=== PATIENT | female | born 1980 ===

== ENCOUNTER 2019-05-24 20:15 | Inpatient (IN) | payer OTHER, SELFPAY ==
[2019-05-24] MEDS ORDERED: Metoprolol Tartrate 5 MG/5 ML VIAL IVP PRN (23:01)
[2019-05-24] MEDS ORDERED: CCU Electrolyte Replacement 1 EACH IVPB ONE (23:02)
[2019-05-24] MEDS ORDERED: Metoprolol Tartrate 5 MG/5 ML VIAL ONE (23:03)
[2019-05-24] MEDS ORDERED: Acetaminophen 325 MG TAB PO PRN (23:08)
[2019-05-24] MEDS ORDERED: Senokot S 8.6-50 MG TAB PO PRN (23:08)
[2019-05-24] MEDS ORDERED: Potassium Chloride 40 MEQ in Premix Bag 1 BAG IVPB PRN (23:11)
[2019-05-24] MEDS ORDERED: PHOS-NAK 1 PKT PACK PO PRN ×2 (23:11)
[2019-05-24] MEDS ORDERED: Magnesium Oxide 400 MG TAB PO PRN ×2 (23:11)
[2019-05-24] MEDS ORDERED: CCU ELECTROLYTE REPLACEMENT PROTOCOL FS PRN (23:11)
[2019-05-24] MEDS ORDERED: Potassium Phosphate 12 MMOL in Sodium Chloride 0.9% 250 ML 250 ML IV PRN (23:11)
[2019-05-24] MEDS ORDERED: Potassium Phosphate 15 MMOL in Sodium Chloride 0.9% 250 ML 250 ML IV PRN (23:11)
[2019-05-24] MEDS ORDERED: Magnesium 2 GM/50 ML 2 GM in Premix Bag 1 BAG IVPB PRN (23:11)
[2019-05-24] MEDS ORDERED: Potassium Chloride 20 MEQ TAB PO PRN (23:11)
[2019-05-24] MEDS ORDERED: Potassium Phosphate 9 MMOL in Sodium Chloride 0.9% 100 ML IVPB PRN (23:11)
[2019-05-24] MEDS ORDERED: Potassium Chloride 40 MEQ in Sodium Chloride 0.9% 250 ML 250 ML IVPB PRN (23:11)
[2019-05-24] MEDS: Morphine 2 MG/ML SYRINGE SLOW IVP PRN (23:21)
[2019-05-24] MEDS ORDERED: Morphine 4 MG/ML VIAL SLOW IVP PRN (23:26)
[2019-05-24] MEDS ORDERED: Ketorolac Tromethamine 30 MG/ML VIAL IVP SCH (23:30)
[2019-05-24] MEDS ORDERED: oxyCODONE 5 MG TAB PO PRN (23:34)
[2019-05-24] MEDS ORDERED: Ibuprofen 600 MG TAB PO PRN (23:35)
[2019-05-24 23:50] VITALS: BMI 25.9
[2019-05-24] MEDS ORDERED: Enoxaparin Sodium 80 MG/0.8 ML SYRINGE SC SCH (23:59)
[2019-05-25] MEDS ORDERED: Ketorolac Tromethamine 30 MG/ML VIAL ONE
[2019-05-25] MEDS: niCARdipine 25 MG in Sodium Chloride 0.9% 250 ML 240 ML IVPB PRN ×3 (00:05→12:15)
[2019-05-25] MEDS: HYDROcodone/Acetaminophen 5/325 mg Tablet PO PRN ×5 (00:07→19:45)
--- NOTE | 2019-05-25 04:01 | HP ---
CHIEF COMPLAINT: Left-sided neck pain. HISTORY OF PRESENT ILLNESS: The patient is a very pleasant 38-year-old female with no past medical history, who presented to the outside ER with complaints of left-sided neck pain. The patient stated that for the past 2 to 3 days, she has been having worsening left-sided headache and neck pain, which increased in intensity. The patient stated that she had so much pain that she took her left over hydrocodone from her previous prescription just to help relieve with the pain. The patient stated that her pain did not improve, so she came into the ER for further evaluation. The patient underwent a CTA of the neck, which indicated a left-sided carotid dissection and she was transferred here for further evaluation. The patient states that she denies any trauma; however, has been doing CrossFit and did lift a few heavy weights. She normally does CrossFit 2 times a week. PAST MEDICAL HISTORY: Denies any past medical history. PAST SURGICAL HISTORY: The patient has had a tonsillectomy. SOCIAL HISTORY: She denies any drug use or smoking history. She does occasionally drink alcohol. She is a full code. Has 2 kids. Has had normal vaginal deliveries. No prior C-sections and no complications during surgery. FAMILY HISTORY: History of some heart disease. REVIEW OF SYSTEMS: All negative except for the ones mentioned above in the HPI. ALLERGIES: NO KNOWN DRUG ALLERGIES. MEDICATIONS: She takes no medications. PHYSICAL EXAMINATION: VITAL SIGNS: Temperature of 98.8, her blood pressure initially was 170/110, heart rate 71, respiratory rate 24, O2 saturation 98% on room air. GENERAL: She is awake, alert, and oriented x3. Does not appear in any distress. She is a little emotional. HEENT: Normocephalic, atraumatic. No lymphadenopathy noted. Pupils are equal and reactive to light. She does have pain on the left basal skull upon palpation. CV: S1 and S2 present. No murmurs, rubs, or gallops. LUNGS: Clear to auscultation. No rhonchi or wheezes noted. ABDOMEN: Soft and nontender. Bowel sounds are present x2. EXTREMITIES: No edema. Pedal pulses are present x2. NEUROVASCULAR: No focal deficits noted. SKIN: No cuts, lesions, or bruises noted. LABORATORY DATA: Laboratory reviewed through her chart and nothing significant was noted. ASSESSMENT AND PLAN: The patient is a very pleasant 38-year-old female, who presents to the hospital with neck pain. 1. Carotid dissection. It could be a possibility that she was lifting heavy weights during CrossFit that could have contributed to her current diagnosis. I will start the patient on Lovenox. I have notified the CV surgeon and we will control her blood pressure. If her blood pressure is not controlled on IV medications, I will transition her to IV nicardipine for better blood pressure control. We will also start giving her some pain medications for her left-sided neck pain. 2. Deep venous thrombosis prophylaxis. The patient is already on Lovenox. Job ID: [id number]
[2019-05-25 04:34] LABS: #Eosinphils 0.1 thou/uL (0.0-0.7); #Lymphocytes 2.2 thou/uL (1.20-3.40); #Monocytes 0.4 thou/uL (0.11-0.59); #Neutrophils 3.9 thou/uL (1.40-6.50); %Basophils 0.3 % (0.0-1.0); %Eosinophils 1.1 % (0.0-10.0); %Lymphocytes 33.8 % (21.0-51.0); %Monocytes 5.6 % (0.0-10.0); %Neutrophils 59.2 % (42.0-75.0); Hemoglobin 14.5 g/dL (12.0-16.0); Mean Corpuscular HGB CONC 34.1 g/dL (32.0-36.0); Mean Corpuscular Hemoglobin 31.5 pg (27.0-31.0); Mean Corpuscular Volume 92.4 fL (78.0-98.0); Mean Platelet Volume 7.4 fL (7.4-10.4); Platelet Count 220 thou/uL (130-400); RBC Distribution Width 11.6 % (11.5-14.5); White Blood Cell (WBC) Count 6.6 thou/uL (4.8-10.8)
[2019-05-25 04:53] LABS: Anion Gap 12 mmol/L (10-20); BUN (Urea Nitrogen) 9 mg/dL (7.0-18.7); Calc. Creatinine Clearance 120 mL/min (70-130); Calcium 8.5 mg/dL (7.8-10.44); Carbon Dioxide 23 mmol/L (22-29); Chloride 105 mmol/L (98-107); Estimated GFR-MDRD 78; Glucose 87 mg/dL (70-105); Potassium 3.7 mmol/L (3.5-5.1); Sodium 136 mmol/L (136-145)
[2019-05-25] MEDS: Famotidine 20 MG TAB PO SCH ×2 (08:38→20:27)
[2019-05-25] MEDS: Enoxaparin Sodium 80 MG/0.8 ML SYRINGE SC SCH ×2 (08:38→20:28)
[2019-05-25] MEDS ORDERED: ISOVUE-370 76%-LOCM 1 ML ONE (10:28)
[2019-05-25] MEDS: Morphine 2 MG/ML SYRINGE SLOW IVP PRN (12:15)
--- NOTE | 2019-05-25 14:48 | PDOC.HOSPP ---
- Subjective Encounter Date: 05/25/19 Encounter Time: 14:46 Subjective: 38 y/o female admitted with severe left sided headache and neck pain. found to have elevated BP and left carotid artery dissection. patient is on oral contraceptives. No prior history of HTN, connective tissue disease or kidney disease. - Objective Vital Signs & Weight: Vital Signs (12 hours) Temp 05/25/19 11:29 98.7 F 05/25/19 08:00 98.7 F 05/25/19 04:00 98.6 F Weight Weight 181 lb 14.102 oz Most Recent Monitor Data Heart Rate from ECG 73 NIBP 124/78 NIBP BP-Mean 93 Respiration from ECG 16 SpO2 100 I&O: 05/24/19 05/25/19 05/26/19 06:59 06:59 06:59 Intake Total 470 480 Output Total 1100 500 Balance -630 -20 Result Diagrams: 05/25/19 04:13 05/25/19 04:13 Hospitalist ROS - Medication Medications: Active Medications Generic Name Dose Route Start Last Admin Trade Name Freq PRN Reason Stop Dose Admin Hydrocodone Bitart/Acetaminophen 1 tab 05/24/19 23:08 05/25/19 14:00 [place] 5/325 PO 1 tab Q4H PRN Administration Moderate Pain (4-6) Enoxaparin Sodium 80 mg 05/25/19 09:00 05/25/19 08:38 Lovenox SC 80 mg 0900,2100 MIGUEL Administration Famotidine 20 mg 05/25/19 09:00 05/25/19 08:38 Pepcid PO 20 mg BID MIGUEL Administration Nicardipine HCl 25 mg/ Sodium 250 mls @ 0 mls/hr 05/24/19 23:02 05/25/19 12: 15 Chloride IVPB 250 mls INF PRN Administration Blood Pressure Protocol Titrate Ketorolac Tromethamine 15 mg 05/24/19 23:30 05/25/19 00:05 Toradol IVP 05/29/19 23:31 15 mg NOW MIGUEL Administration Morphine Sulfate 2 mg 05/24/19 23:05 05/25/19 12:15 Morphine SLOW IVP 2 mg Q4H PRN Administration Pain - Exam General Appearance: awake alert Eye: anicteric sclera ENT: normocephalic atraumatic Neck: symmetric, no JVD Heart: RRR, murmur present Respiratory: no wheezes, no rales, no ronchi, normal chest expansion Gastrointestinal: soft, non-tender, non-distended, normal bowel sounds Extremities: no cyanosis, no edema Neurological: cranial nerve grossly intact, no focal deficits Psychiatric: normal affect, A&O x 3 Hosp A/P (1) Carotid artery dissection Code(s): I77.71 - DISSECTION OF CAROTID ARTERY Status: Acute (2) HTN (hypertension) Code(s): I10 - ESSENTIAL (PRIMARY) HYPERTENSION Status: Acute (3) Neck pain Code(s): M54.2 - CERVICALGIA Status: Acute (4) Headache Code(s): R51 - HEADACHE Status: Acute - Plan Get adequate BP with cardene infusion continue anticoagulation with lovenox. Analgesic as needed to continue Start lipitor Get lipid panel. get echo and renal US. Hold oral contraceptives Awaiting vascular surgery evaluation.
--- NOTE | 2019-05-25 16:34 | ULT ---
RENAL ULTRASOUND: HISTORY: Assess for polycystic kidney disease. FINDINGS: The right kidney measures 10.4 cm in length. The left kidney measures 11.6 cm in length. There is berumen ggestion of a duplicated collecting system on the left by ultrasound. No evidence of hydronephrosis. No evidence of renal cyst. There is no evidence of polycystic kidney d isease. No mass lesion. The urinary bladder is unremarkable. Bilateral ureteral jets are demonstrated. IMPRESSION: Question double collecting system on the left. Renal ultrasound otherwise unremarkable. No evidence o f polycystic kidney disease. POS: [facility]
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
[2019-05-25] MEDS: Atorvastatin Calcium 40 MG TAB PO SCH (20:27)
[2019-05-25] MEDS ORDERED: FLU VACC QS2019-20(6MOS UP)/PF 60 MCG/0.5 ML SYRINGE IM ONE (21:00)
--- NOTE | 2019-05-26 00:02 | CON ---
DATE OF CONSULTATION: 05/25/2019 REASON FOR CONSULTATION: Evaluate patient with left carotid dissection. HISTORY OF PRESENT ILLNESS: Ms. Delvalle is a 38-year-old woman, who presented to an [facility] emergency department with history of a week of neck pain and headache. She had become acutely worse and she decided to get evaluated. She had a CT angio of her neck and brain performed at the [facility] emergency department. The report from the [facility] emergency department was relayed that she had a left carotid dissection at skull base. The patient has no previous history of hypertension. She has had no trauma. She does do CrossFit, but did not notice any change in her neck pain while doing CrossFit or acutely initiate pain while doing CrossFit. When she was seen at the [facility] emergency department, she had an extremely elevated blood pressure. On arrival here, her blood pressure was 170/110. Currently, her blood pressure is 129/95. She has been on a Cardene drip today to control her blood pressure. I have reviewed the CT angiogram from the [facility] Emergency Department with Dr. Mal Cerda. There is no obvious dissection of the carotid artery. She has on two separate cuts and abnormality which may be related to shadowing, but we cannot tell with 100% certainty that this is or is not a localized short-segment dissection. PAST MEDICAL HISTORY: None. PAST SURGICAL HISTORY: Tonsillectomy. CURRENT MEDICATIONS: At home, none. ALLERGIES: NONE. SOCIAL HISTORY: She does not smoke or vape. She occasionally uses alcohol. She has two children and is . PHYSICAL EXAMINATION: HEENT: Sclerae nonicteric. Pupils are equal and round bilaterally. NECK: Tender on the left. She has palpable carotid pulses. She has no carotid bruits. CHEST: Clear bilaterally. HEART: Rhythm is regular. ABDOMEN: Soft, nontender. ASSESSMENT AND PLAN: Question of left carotid dissection with hypertensive emergency yesterday. Her blood pressure is currently in normal range off all the drips. We would like to keep her blood pressure less than 130 systolic and in the 80s diastolically. We are going to repeat her CT angio of the neck tomorrow and hopefully with a higher quality scan or be able to get a better evaluation. Regardless of dissection or not, she needs to have good blood pressure control. The question is if she does have a carotid dissection, she would require six months of anticoagulation. If there is no dissection, then blood pressure control will be her in-line treatment. Job ID: [id number]
[2019-05-26 04:14] LABS: Anion Gap 12 mmol/L (10-20); BUN (Urea Nitrogen) 14 mg/dL (7.0-18.7); Calc. Creatinine Clearance 103 mL/min (70-130); Calcium 8.4 mg/dL (7.8-10.44); Carbon Dioxide 22 mmol/L (22-29); Cardiac Risk 4.4 (Less than 4.5); Chloride 107 mmol/L (98-107); Cholesterol 159 mg/dl (< 200 Desired); Estimated GFR-MDRD 65; Glucose 86 mg/dL (70-105); HDL Cholesterol 36 mg/dL (>60 Neg Risk); LDL Cholesterol, Calculated 75 mg/dL; Potassium 4.1 mmol/L (3.5-5.1); Sodium 137 mmol/L (136-145); Triglycerides 238 mg/dL (Less than 150)
[2019-05-26] MEDS: HYDROcodone/Acetaminophen 5/325 mg Tablet PO PRN ×5 (04:43→21:12)
--- NOTE | 2019-05-26 08:07 | CT ---
PRELIMINARY REPORT/[facility]/EMERGENCY AFTER HOURS PROCEDURE: Addendum created by Storm Hurley MD on 05/26/2019 5:07 AM Central Time ([place] & [place]) THIS REPORT CONT AINS FINDINGS THAT MAY BE CRITICAL TO PATIENT CARE. The findings were verbally communicated via telep kayla conference with Nurse Becki shell at 5:06 AM CDT on 05/26/2019. The findings were acknowledged and understood. Initial Report created on 05/26/2019 5:04 AM Central Time ([place] & [place]) PROCEDURE INFORMATION: Exam: CT Angiography Neck With Contrast Exam date and time: 05/26/2019 4:31 AM Clinical history: 38 years old, female; Pain; Headache; Patient HX: Eval for possible left carotid ar everett dissection at skull base TECHNIQUE: Imaging protocol: Computed tomography angiography of the neck with intravenous contrast. 3D rendering: MIP reconstructed images were created and reviewed. COMPARISON: No relevant prior studies available. FINDINGS: VASCULATURE: Right common carotid artery: Unremarkable. No stenosis. No dissection or occlusion. Right internal carotid artery: Unremarkable extracranial segment. No stenosis. No dissection or occlu peter. Right external carotid artery: Unremarkable. No occlusion or stenosis of the origin. Right vertebral artery: Unremarkable. No stenosis. No dissection or occlusion. Left common carotid artery: Unremarkable. No stenosis. No dissection or occlusion. Left internal carotid artery: There is a dissection flap noted involving the distal left internal car otid artery at the skull base with posterior pseudoaneurysm measuring approximately 6 x 4 x 8 mm. Left external carotid artery: Unremarkable. No occlusion or stenosis of the origin. Left vertebral artery: Unremarkable. No stenosis. No dissection or occlusion. NECK: Bones/joints: No acute fracture. Soft tissues: Normal. No significant soft tissue swelling. 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 COMMENT: Reference per NASCET criteria for degree of stenosis: Mild: less than 50% stenosis. Moderate: 50-69% stenosis. Severe: 70-94% stenosis. Near occlusion: 95-99% stenosis. Thank you for allowing us to participate in the care of your patient. Dictated and Authenticated by: Storm Hurley MD 05/26/2019 5:04 AM Central Time ([place] & [place]) FINAL REPORT EMERGENT AFTER HOURS CTA OF THE CHEST: FINDINGS/IMPRESSION: I agree with the findings and impression given in the preliminary report per [facility] physician. There is an area of questionable dissection in an enlarged portion of the left internal carotid artery near the skull base. Alternatively, this could represent artifact as the area of streak continues into t he vein and is not confined solely to the artery in this location. Without a history of trauma, foca l dissection in the internal carotid artery would be unlikely. An MRA of the neck should be performed for confirmation. This exam was reviewed with Dr. Murillo who agrees with the findings and impression in the addendum. POS: [facility]
[2019-05-26] MEDS: Aspirin 81 mg Enteric Coated Tablet PO SCH (08:46)
[2019-05-26] MEDS: Famotidine 20 MG TAB PO SCH ×2 (08:48→21:09)
[2019-05-26] MEDS: Clopidogrel Bisulfate 75 MG TAB PO SCH (08:48)
[2019-05-26] MEDS ORDERED: Amlodipine 5 MG TAB PO SCH (11:15)
[2019-05-26] MEDS: Ibuprofen 800 MG TAB PO SCH ×2 (13:06→21:09)
[2019-05-26] MEDS: niCARdipine 25 MG in Sodium Chloride 0.9% 250 ML 240 ML IVPB PRN ×3 (13:50→21:10)
[2019-05-26] MEDS: Morphine 4 MG/ML VIAL SLOW IVP PRN ×2 (13:55→16:16)
--- NOTE | 2019-05-26 15:08 | PDOC.HOSPP ---
- Subjective Encounter Date: 05/26/19 Encounter Time: 12:06 Subjective: 38 y/o female admitted with severe left sided headache and neck pain. Found to have elevated BP and left carotid artery dissection. Patient is on oral contraceptives. No prior history of HTN, connective tissue disease or kidney disease. Feeling better. Denied dizziness, nausea, vomiting and focal weakness - Objective Vital Signs & Weight: Vital Signs (12 hours) Temp Pulse BP Pulse Ox 05/26/19 12:00 98.4 F 05/26/19 11:49 66 137/89 05/26/19 07:21 99 05/26/19 07:00 98.7 F Weight Weight 181 lb 14.102 oz Most Recent Monitor Data Heart Rate from ECG 78 NIBP 124/79 NIBP BP-Mean 94 Respiration from ECG 27 SpO2 95 I&O: 05/25/19 05/26/19 05/27/19 06:59 06:59 06:59 Intake Total 470 2226 2210 Output Total 1100 1350 300 Balance -518 642 0025 Result Diagrams: 05/25/19 04:13 05/26/19 03:34 Hospitalist ROS - Medication Medications: Active Medications Generic Name Dose Route Start Last Admin Trade Name Freq PRN Reason Stop Dose Admin Hydrocodone Bitart/Acetaminophen 1 tab 05/24/19 23:08 05/26/19 13:05 [place] 5/325 PO 1 tab Q4H PRN Administration Moderate Pain (4-6) Aspirin 81 mg 05/26/19 09:00 05/26/19 08:46 Ecotrin PO 81 mg DAILY MIGUEL Administration Atorvastatin Calcium 40 mg 05/25/19 21:00 05/25/19 20:27 Lipitor PO 40 mg HS MIGUEL Administration Clopidogrel Bisulfate 75 mg 05/26/19 09:00 05/26/19 08:48 Plavix PO 75 mg DAILY MIGUEL Administration Famotidine 20 mg 05/25/19 09:00 05/26/19 08:48 Pepcid PO 20 mg BID MIGUEL Administration Nicardipine HCl 25 mg/ Sodium 250 mls @ 0 mls/hr 05/24/19 23:02 05/26/19 13: 50 Chloride IVPB 250 mls INF PRN Administration Blood Pressure Protocol Titrate Ibuprofen 400 mg 05/26/19 14:00 05/26/19 13:06 Motrin PO 400 mg Q8HR MIGUEL Administration Metoprolol Tartrate 5 mg 10/20/19 23:01 05/26/19 09:48 Lopressor IVP 05/27/19 23:02 5 mg ONE PRN Administration Blood Pressure Morphine Sulfate 2 mg 05/24/19 23:05 05/25/19 12:15 Morphine SLOW IVP 2 mg Q4H PRN Administration Pain Morphine Sulfate 4 mg 05/26/19 13:46 05/26/19 13:55 Morphine SLOW IVP 4 mg Q1H PRN Administration Pain - Exam General Appearance: awake alert Eye: anicteric sclera ENT: normocephalic atraumatic Neck: supple, symmetric Heart: RRR, murmur present Respiratory: no wheezes, no rales, no ronchi, normal chest expansion Gastrointestinal: soft, non-tender, non-distended, normal bowel sounds Extremities: no cyanosis, no edema Neurological: cranial nerve grossly intact, no focal deficits Psychiatric: normal affect, A&O x 3 Hosp A/P (1) Carotid artery dissection Code(s): I77.71 - DISSECTION OF CAROTID ARTERY Status: Acute (2) HTN (hypertension) Code(s): I10 - ESSENTIAL (PRIMARY) HYPERTENSION Status: Acute (3) Neck pain Code(s): M54.2 - CERVICALGIA Status: Acute (4) Headache Code(s): R51 - HEADACHE Status: Acute (5) Malignant hypertension Code(s): I10 - ESSENTIAL (PRIMARY) HYPERTENSION Status: Acute (6) Dyslipidemia Code(s): E78.5 - HYPERLIPIDEMIA, UNSPECIFIED Status: Acute - Plan Start amlodipine and wean off cardene infusion continue anticoagulation with lovenox. Analgesic as needed to continue Continue lipitor Dcoral contraceptives Await Echo report
--- NOTE | 2019-05-26 16:59 | PRG ---
DATE OF SERVICE: 05/26/2019 Ms. Delvalle continues to have neck pain that waxes and wanes. The [facility] Radiology crew felt that she does have a carotid dissection. The over-read by the local radiologist felt that she did not. The vascular surgeon feels that she does have a dissection. I would tend to lean towards the diagnosis by dissection given that she presenting with neck pain and has no other explanation for this. This is a number one presenting complaint with a carotid dissection, especially a spontaneous one. We will continue to follow the other physicians. They recommended the initiation of the antiplatelet therapy consistent with a recent review of the literature. Her anticoagulation has been discontinued. Job ID: [id number]
[2019-05-26] MEDS: Atorvastatin Calcium 40 MG TAB PO SCH (21:09)
[2019-05-27 05:13] LABS: Anion Gap 11 mmol/L (10-20); BUN (Urea Nitrogen) 15 mg/dL (7.0-18.7); Calc. Creatinine Clearance 108 mL/min (70-130); Calcium 8.4 mg/dL (7.8-10.44); Carbon Dioxide 24 mmol/L (22-29); Chloride 106 mmol/L (98-107); Estimated GFR-MDRD 68; Glucose 79 mg/dL (70-105); Sodium 137 mmol/L (136-145)
[2019-05-27] MEDS: HYDROcodone/Acetaminophen 5/325 mg Tablet PO PRN ×3 (05:23→18:41)
[2019-05-27] MEDS: Ibuprofen 800 MG TAB PO SCH ×3 (05:24→21:40)
[2019-05-27] MEDS ORDERED: Amlodipine 10 MG TAB PO SCH (09:00)
[2019-05-27] MEDS ORDERED: Amlodipine 5 MG TAB PO SCH (09:00)
[2019-05-27] MEDS: Famotidine 20 MG TAB PO SCH ×2 (09:38→21:39)
[2019-05-27] MEDS: Clopidogrel Bisulfate 75 MG TAB PO SCH (09:38)
[2019-05-27] MEDS: Aspirin 81 mg Enteric Coated Tablet PO SCH (09:38)
--- NOTE | 2019-05-27 15:25 | PRG ---
DATE OF SERVICE: 05/27/2019 SUBJECTIVE: Stephanie Delvalle has stable vital signs. OBJECTIVE: VITAL SIGNS: Blood pressure has been in the 1-teens to 120s today. She is off Cardene. NECK: She denies having any neck pain. LUNGS: Clear. HEART: Regular rhythm. ABDOMEN: Soft. NEUROLOGIC: She has no focal neurological issues. LABORATORY DATA: Echocardiogram is normal except for mild LVH. IMPRESSION: Carotid dissection. I will send an alpha-1 antitrypsin level and homocystine level to see if we find something that might explain this, although there is a case report related frequency events. We will continue to follow the other physicians. Job ID: [id number]
[2019-05-27] MEDS ORDERED: niCARdipine 25 MG in Sodium Chloride 0.9% 250 ML 240 ML IVPB PRN (16:18)
--- NOTE | 2019-05-27 17:59 | PDOC.HOSPP ---
- Subjective Encounter Date: 05/27/19 Encounter Time: 11:57 Subjective: 38 y/o female admitted with severe left sided headache and neck pain. Found to have elevated BP and left carotid artery dissection. No prior history of HTN, connective tissue disease or kidney disease. Feeling better. Denied dizziness, nausea, vomiting and focal weakness. Cardene infusion was restarted yesterday due to increase in BP associated with neck and head pain. - Objective Vital Signs & Weight: Vital Signs (12 hours) Temp Pulse Ox 05/27/19 10:46 98 05/27/19 08:00 98 05/27/19 07:00 98.4 F Weight Weight 174 lb 9.698 oz Most Recent Monitor Data Heart Rate from ECG 83 NIBP 136/100 NIBP BP-Mean 112 Respiration from ECG 17 SpO2 97 I&O: 05/26/19 05/27/19 05/28/19 06:59 06:59 06:59 Intake Total 2226 2946 390 Output Total 1350 1100 200 Balance 876 1846 190 Result Diagrams: 05/25/19 04:13 05/27/19 04:39 Hospitalist ROS - Medication Medications: Active Medications Generic Name Dose Route Start Last Admin Trade Name Freq PRN Reason Stop Dose Admin Hydrocodone Bitart/Acetaminophen 1 tab 05/24/19 23:08 05/27/19 12:00 [place] 5/325 PO 1 tab Q4H PRN Administration Moderate Pain (4-6) Amlodipine Besylate 10 mg 05/27/19 09:00 05/27/19 09:38 Norvasc PO 10 mg DAILY MIGUEL Administration Aspirin 81 mg 05/26/19 09:00 05/27/19 09:38 Ecotrin PO 81 mg DAILY MIGUEL Administration Atorvastatin Calcium 40 mg 05/25/19 21:00 05/26/19 21:09 Lipitor PO 40 mg HS MIGUEL Administration Clopidogrel Bisulfate 75 mg 05/26/19 09:00 05/27/19 09:38 Plavix PO 75 mg DAILY MIGUEL Administration Famotidine 20 mg 05/25/19 09:00 05/27/19 09:38 Pepcid PO 20 mg BID MIGUEL Administration Ibuprofen 400 mg 05/26/19 14:00 05/27/19 15:01 Motrin PO 400 mg Q8HR MIGUEL Administration Metoprolol Tartrate 5 mg 05/24/19 23:01 05/26/19 09:48 Lopressor IVP 05/27/19 23:02 5 mg ONE PRN Administration Blood Pressure Morphine Sulfate 2 mg 05/24/19 23:05 05/25/19 12:15 Morphine SLOW IVP 2 mg Q4H PRN Administration Pain Morphine Sulfate 4 mg 05/26/19 13:46 05/26/19 16:16 Morphine SLOW IVP 4 mg Q1H PRN Administration Pain - Exam General Appearance: awake alert Eye: anicteric sclera ENT: normocephalic atraumatic Neck: symmetric, no JVD Heart: RRR Respiratory: no wheezes, no rales, no ronchi, normal chest expansion Gastrointestinal: soft, non-tender, normal bowel sounds Extremities: no cyanosis, no edema Neurological: cranial nerve grossly intact, no focal deficits Psychiatric: normal affect, A&O x 3 Hosp A/P (1) Carotid artery dissection Code(s): I77.71 - DISSECTION OF CAROTID ARTERY Status: Acute (2) Malignant hypertension Code(s): I10 - ESSENTIAL (PRIMARY) HYPERTENSION Status: Acute (3) Neck pain Code(s): M54.2 - CERVICALGIA Status: Acute (4) Headache Code(s): R51 - HEADACHE Status: Acute (5) Dyslipidemia Code(s): E78.5 - HYPERLIPIDEMIA, UNSPECIFIED Status: Acute (6) Hypertensive heart disease Code(s): I11.9 - HYPERTENSIVE HEART DISEASE WITHOUT HEART FAILURE Status: Acute - Plan Start low dose losartan, increase metoprolol to 25 bid and continue amlodipine and wean off cardene infusion. Will get MRA neck to confirm dissection. Awaiting vascular surgery re evaluation in view of uncertainty of CTA report and need for anticoagulation Analgesic as needed to continue Continue lipitor
[2019-05-27] MEDS ORDERED: Losartan 25 MG TAB PO SCH (18:00)
[2019-05-27] MEDS ORDERED: Metoprolol Tartrate 25 MG TAB PO SCH (21:00)
[2019-05-27] MEDS: Atorvastatin Calcium 40 MG TAB PO SCH (21:39)
[2019-05-27] MEDS: Metoprolol Tartrate 25 MG TAB PO SCH (21:40)
[2019-05-28] MEDS: HYDROcodone/Acetaminophen 5/325 mg Tablet PO PRN ×2 (00:13→07:00)
[2019-05-28 06:33] LABS: Anion Gap 13 mmol/L (10-20); BUN (Urea Nitrogen) 15 mg/dL (7.0-18.7); Calc. Creatinine Clearance 107 mL/min (70-130); Calcium 8.3 mg/dL (7.8-10.44); Carbon Dioxide 22 mmol/L (22-29); Chloride 106 mmol/L (98-107); Estimated GFR-MDRD 71; Glucose 75 mg/dL (70-105); Potassium 4.6 mmol/L (3.5-5.1); Sodium 136 mmol/L (136-145)
[2019-05-28] MEDS: Ibuprofen 800 MG TAB PO SCH ×3 (07:02→21:10)
[2019-05-28] MEDS: Aspirin 81 mg Enteric Coated Tablet PO SCH (08:37)
[2019-05-28] MEDS: Metoprolol Tartrate 25 MG TAB PO SCH ×2 (08:38→20:18)
[2019-05-28] MEDS: Clopidogrel Bisulfate 75 MG TAB PO SCH (08:38)
[2019-05-28] MEDS: Famotidine 20 MG TAB PO SCH ×2 (08:38→20:19)
[2019-05-28] MEDS ORDERED: Losartan 25 MG TAB PO SCH (09:00)
--- NOTE | 2019-05-28 09:33 | PRG ---
DATE OF SERVICE: 05/28/2019 Stephanie Delvalle has very few complaints today. She did feel nauseated when she got up today. She thinks it is because she took her pain medicines on an empty stomach. There was no blood pressure checked while she had those symptoms. I have asked the nurse to do orthostatic blood pressure checks today. To refresh, she did get hypertensive just with Dr. Carlin being in the room yesterday, so we added a beta-sameer at bedtime and in the morning at 25 mg to the 10 mg of Norvasc she is getting. She is also on losartan. We probably should stop this since we are adding a beta sameer. She does not need to be on three different antihypertensives at low doses at this time. She will continue in the critical care unit. She could be transferred to intermediate care. Job ID: [id number]
[2019-05-28] MEDS: Amlodipine 10 MG TAB PO SCH (10:24)
--- NOTE | 2019-05-28 14:58 | PDOC.HOSPP ---
- Subjective Encounter Date: 05/28/19 Encounter Time: 14:56 Subjective: 38 y/o female admitted with severe left sided headache and neck pain. Found to have elevated BP and left carotid artery dissection. No prior history of HTN, connective tissue disease or kidney disease. Off cardene infusion. Feeling better. Denied dizziness, nausea, vomiting and focal weakness. - Objective Vital Signs & Weight: Vital Signs (12 hours) Temp Pulse BP BP BP BP Pulse Ox 05/28/19 13:00 98.2 F 05/28/19 12:00 75 148/87 H 137/95 H 137/80 05/28/19 10:24 70 121/75 05/28/19 08:00 98.6 F 97 05/28/19 04:00 98.4 F Weight Weight 170 lb 10.205 oz Most Recent Monitor Data Heart Rate from ECG 72 NIBP 123/79 NIBP BP-Mean 93 Respiration from ECG 18 SpO2 97 I&O: 05/27/19 05/28/19 05/29/19 06:59 06:59 06:59 Intake Total 2946 880 520 Output Total 1100 850 700 Balance 1846 30 -180 Result Diagrams: 05/25/19 04:13 05/28/19 05:51 Hospitalist ROS - Medication Medications: Active Medications Generic Name Dose Route Start Last Admin Trade Name Freq PRN Reason Stop Dose Admin Hydrocodone Bitart/Acetaminophen 1 tab 05/24/19 23:08 05/28/19 07:00 [place] 5/325 PO 1 tab Q4H PRN Administration Moderate Pain (4-6) Amlodipine Besylate 10 mg 05/28/19 06:52 05/28/19 10:24 Norvasc PO 10 mg DAILY MIGUEL Administration Aspirin 81 mg 05/26/19 09:00 05/28/19 08:37 Ecotrin PO 81 mg DAILY MIGUEL Administration Atorvastatin Calcium 40 mg 05/25/19 21:00 05/27/19 21:39 Lipitor PO 40 mg HS MIGUEL Administration Clopidogrel Bisulfate 75 mg 05/26/19 09:00 05/28/19 08:38 Plavix PO 75 mg DAILY MIGUEL Administration Famotidine 20 mg 05/25/19 09:00 05/28/19 08:38 Pepcid PO 20 mg BID MIGUEL Administration Ibuprofen 400 mg 05/26/19 14:00 05/28/19 13:32 Motrin PO 400 mg Q8HR MIGUEL Administration Metoprolol Tartrate 25 mg 05/27/19 21:00 05/28/19 08:38 Lopressor PO 25 mg BID MIGUEL Administration Morphine Sulfate 2 mg 05/24/19 23:05 05/25/19 12:15 Morphine SLOW IVP 2 mg Q4H PRN Administration Pain Morphine Sulfate 4 mg 05/26/19 13:46 05/26/19 16:16 Morphine SLOW IVP 4 mg Q1H PRN Administration Pain Senna/Docusate Sodium 2 tab 05/24/19 23:08 05/28/19 08:38 Senokot S PO 2 tab BID PRN Administration Constipation - Exam General Appearance: awake alert Eye: anicteric sclera ENT: normocephalic atraumatic Neck: supple, symmetric Heart: RRR Respiratory: no wheezes, no rales, no ronchi, normal chest expansion Gastrointestinal: soft, non-tender, non-distended, normal bowel sounds Extremities: no cyanosis, no edema Neurological: cranial nerve grossly intact, no focal deficits Psychiatric: normal affect, A&O x 3 Hosp A/P (1) Carotid artery dissection Code(s): I77.71 - DISSECTION OF CAROTID ARTERY Status: Acute (2) Malignant hypertension Code(s): I10 - ESSENTIAL (PRIMARY) HYPERTENSION Status: Acute (3) Neck pain Code(s): M54.2 - CERVICALGIA Status: Acute (4) Headache Code(s): R51 - HEADACHE Status: Acute (5) Dyslipidemia Code(s): E78.5 - HYPERLIPIDEMIA, UNSPECIFIED Status: Acute (6) Hypertensive heart disease Code(s): I11.9 - HYPERTENSIVE HEART DISEASE WITHOUT HEART FAILURE Status: Acute - Plan Continue losartan 25, metoprol 25 bid and amlodipine 10. Off cardene infusion. Continue lipitor and antiplatelet Analgesic as needed to continue
[2019-05-28] MEDS: Atorvastatin Calcium 40 MG TAB PO SCH (20:18)
[2019-05-29 06:14] LABS: Anion Gap 12 mmol/L (10-20); BUN (Urea Nitrogen) 14 mg/dL (7.0-18.7); Calc. Creatinine Clearance 117 mL/min (70-130); Calcium 8.3 mg/dL (7.8-10.44); Carbon Dioxide 26 mmol/L (22-29); Chloride 106 mmol/L (98-107); Estimated GFR-MDRD 80; Glucose 74 mg/dL (70-105); Potassium 4.1 mmol/L (3.5-5.1); Sodium 140 mmol/L (136-145)
[2019-05-29] MEDS: Ibuprofen 800 MG TAB PO SCH ×3 (06:19→21:40)
[2019-05-29] MEDS: Metoprolol Tartrate 25 MG TAB PO SCH (08:51)
[2019-05-29] MEDS: Clopidogrel Bisulfate 75 MG TAB PO SCH (08:51)
[2019-05-29] MEDS: Amlodipine 10 MG TAB PO SCH (08:52)
[2019-05-29] MEDS: Aspirin 81 mg Enteric Coated Tablet PO SCH (08:52)
[2019-05-29] MEDS: Famotidine 20 MG TAB PO SCH ×2 (08:55→20:07)
[2019-05-29] MEDS ORDERED: Metoprolol Tartrate 25 MG TAB PO SCH (11:00)
--- NOTE | 2019-05-29 13:52 | PDOC.HOSPP ---
- Subjective Encounter Date: 05/29/19 Encounter Time: 13:50 Subjective: 38 y/o female admitted with severe left sided headache and neck pain. Found to have elevated BP and left carotid artery dissection. No prior history of HTN, connective tissue disease or kidney disease. Off cardene infusion. Feeling better. Denied dizziness, nausea, vomiting and focal weakness. Ambulating. - Objective Vital Signs & Weight: Vital Signs (12 hours) Temp Pulse Resp BP BP BP Pulse Ox 05/29/19 13:41 98.2 F 98 16 137/85 98 05/29/19 13:00 98.5 F 05/29/19 12:00 98.5 F 148/106 H 129/89 148/102 H 05/29/19 08:52 75 05/29/19 08:00 98.2 F 143/106 H 122/80 147/97 H 100 05/29/19 07:00 98.2 F 05/29/19 04:00 98.3 F Weight Weight 183 lb 12.437 oz Most Recent Monitor Data Heart Rate from ECG 75 NIBP 131/84 NIBP BP-Mean 99 Respiration from ECG 17 SpO2 98 I&O: 05/28/19 05/29/19 05/30/19 06:59 06:59 06:59 Intake Total 880 2190 540 Output Total 850 1350 500 Balance 30 840 40 Result Diagrams: 05/25/19 04:13 05/29/19 05:20 Hospitalist ROS - Medication Medications: Active Medications Generic Name Dose Route Start Last Admin Trade Name Freq PRN Reason Stop Dose Admin Hydrocodone Bitart/Acetaminophen 1 tab 05/24/19 23:08 05/28/19 07:00 [place] 5/325 PO 1 tab Q4H PRN Administration Moderate Pain (4-6) Amlodipine Besylate 10 mg 05/28/19 06:52 05/29/19 08:52 Norvasc PO 10 mg DAILY MIGUEL Administration Aspirin 81 mg 05/26/19 09:00 05/29/19 08:52 Ecotrin PO 81 mg DAILY MIGUEL Administration Atorvastatin Calcium 40 mg 05/25/19 21:00 05/28/19 20:18 Lipitor PO 40 mg HS MIGUEL Administration Clopidogrel Bisulfate 75 mg 05/26/19 09:00 05/29/19 08:51 Plavix PO 75 mg DAILY MIGUEL Administration Famotidine 20 mg 05/25/19 09:00 05/29/19 08:55 Pepcid PO 20 mg BID MGIUEL Administration Ibuprofen 400 mg 05/26/19 14:00 05/29/19 06:19 Motrin PO 400 mg Q8HR MIGUEL Administration Morphine Sulfate 2 mg 05/24/19 23:05 05/25/19 12:15 Morphine SLOW IVP 2 mg Q4H PRN Administration Pain Morphine Sulfate 4 mg 05/26/19 13:46 05/26/19 16:16 Morphine SLOW IVP 4 mg Q1H PRN Administration Pain Senna/Docusate Sodium 2 tab 05/24/19 23:08 05/28/19 08:38 Senokot S PO 2 tab BID PRN Administration Constipation - Exam General Appearance: awake alert Eye: anicteric sclera ENT: normocephalic atraumatic, moist mucosa Neck: supple, symmetric, no JVD Heart: RRR Respiratory: no wheezes, no rales, no ronchi, normal chest expansion Gastrointestinal: soft, non-tender, non-distended, normal bowel sounds Extremities: no cyanosis, no edema Neurological: cranial nerve grossly intact, no focal deficits Psychiatric: normal affect, A&O x 3 Hosp A/P (1) Carotid artery dissection Code(s): I77.71 - DISSECTION OF CAROTID ARTERY Status: Acute (2) Malignant hypertension Code(s): I10 - ESSENTIAL (PRIMARY) HYPERTENSION Status: Acute (3) Neck pain Code(s): M54.2 - CERVICALGIA Status: Acute (4) Headache Code(s): R51 - HEADACHE Status: Acute (5) Dyslipidemia Code(s): E78.5 - HYPERLIPIDEMIA, UNSPECIFIED Status: Acute (6) Hypertensive heart disease Code(s): I11.9 - HYPERTENSIVE HEART DISEASE WITHOUT HEART FAILURE Status: Acute - Plan Antihypertensives adjusted. Now on metoprol 50 bid and amlodipine 10. Continue lipitor and antiplatelet Analgesic as needed to continue Possible discharge tomorrow.
[2019-05-29] MEDS: HYDROcodone/Acetaminophen 5/325 mg Tablet PO PRN (16:27)
--- NOTE | 2019-05-29 19:03 | PRG ---
DATE OF SERVICE: 05/29/2019 SUBJECTIVE: Stephanie Delvalle had no complaints. She is not requiring narcotics to control pain anymore. Most of her blood pressure has been well controlled, but we have increased her Lopressor to 50 mg b.i.d. and she is still on Norvasc 10 mg in the morning. OBJECTIVE: VITAL SIGNS: She is afebrile. Heart rate is 92, respiratory rate is 18, and oximetry is 98%. LUNGS: Unchanged and unremarkable. HEART: Unchanged and unremarkable. ABDOMEN: Unchanged and unremarkable. IMPRESSION: Carotid dissection. Her homocysteine and alpha-1 antitrypsin levels are normal. We will have her ambulate for a day and then she will probably be discharged for close outpatient followup. Job ID: [id number]
[2019-05-29] MEDS: Metoprolol Tartrate 50 MG TAB PO SCH (20:07)
[2019-05-29] MEDS: Atorvastatin Calcium 40 MG TAB PO SCH (20:08)
[2019-05-30 03:52] VITALS: TEMP 98.3
[2019-05-30] MEDS: Ibuprofen 800 MG TAB PO SCH (05:50)
[2019-05-30 06:22] LABS: Anion Gap 13 mmol/L (10-20); BUN (Urea Nitrogen) 15 mg/dL (7.0-18.7); Calc. Creatinine Clearance 126 mL/min (70-130); Calcium 8.6 mg/dL (7.8-10.44); Carbon Dioxide 22 mmol/L (22-29); Chloride 106 mmol/L (98-107); Estimated GFR-MDRD 81; Glucose 75 mg/dL (70-105); Sodium 137 mmol/L (136-145)
[2019-05-30] MEDS: Clopidogrel Bisulfate 75 MG TAB PO SCH (10:22)
[2019-05-30] MEDS: Famotidine 20 MG TAB PO SCH (10:22)
[2019-05-30] MEDS: Metoprolol Tartrate 50 MG TAB PO SCH (10:23)
[2019-05-30] MEDS: Amlodipine 10 MG TAB PO SCH (10:23)
[2019-05-30] MEDS: Aspirin 81 mg Enteric Coated Tablet PO SCH (10:23)
[2019-05-30 10:34] VITALS: BP 142/82
--- NOTE | 2019-05-30 14:04 | PDOC.EVN ---
Event Note - Event Note Event Note: Discharge summary dictated. # [id number]
--- NOTE | 2019-05-30 20:01 | PRG ---
DATE OF SERVICE: 05/30/2019 Blood pressures were evaluated yesterday overnight and today both sitting and standing and in bed. Her blood pressures have all been in the 120 systolic range. She is on Lopressor 50 b.i.d. and Norvasc 10 mg a day. She will keep a diary of morning and evening of blood pressures. She will follow up with me in 2 weeks. She will continue with her aspirin and Plavix. Job ID: [id number]
--- NOTE | 2019-05-31 13:59 | DIS ---
DATE OF ADMISSION: 05/24/2019 DATE OF DISCHARGE: 05/30/2019 DISCHARGE DIAGNOSES: 1. Left carotid artery dissection. 2. Malignant hypertension. 3. Neck pain. 4. Headache. 5. Dyslipidemia. 6. Hypertensive heart disease. 7. Diastolic dysfunction. CONSULTS: 1. Cardiovascular Surgery. 2. Pulmonary and Critical Care. HOSPITAL COURSE: A 38-year-old female with no significant past medical history, admitted with acute onset of severe left-sided headache and neck pain. The patient was found to have markedly elevated blood pressure and further evaluation with imaging showed left carotid artery dissection. The patient was started on Cardene infusion and admitted to the ICU. She was later restarted on oral antihypertensives and Cardene infusion was weaned off. Etiologic factor or cause is unknown and evaluation with renal ultrasound and other predisposes factors to dissection were unremarkable. Noteworthy, however, the patient was on oral contraceptive pill and has uncontrolled blood pressure. The patient also received analgesics with improvement or others with resolution of headache and neck pain. She remained stable with blood pressure controlled and was subsequently discharged home. DISCHARGE CONDITION: Improved. DISCHARGE DISPOSITION: Home. DISCHARGE MEDICATIONS: 1. Acetaminophen 650 mg q.4 p.r.n. for pain. 2. Amlodipine 10 mg p.o. daily. 3. Aspirin 81 mg p.o. daily. 4. Lipitor 40 mg p.o. daily at bedtime. 5. Plavix 75 mg p.o. daily. 6. Pepcid 20 mg p.o. b.i.d. 7. Ibuprofen 400 mg p.o. t.i.d. p.r.n. for pain. 8. Metoprolol 50 mg p.o. b.i.d. 9. MiraLAX 17 g p.o. b.i.d. FOLLOWUP: 1. With PCP in 1 week. 2. With Pulmonary and Critical Care in 2 weeks. 3. With Cardiovascular Surgery in 2 to 3 weeks. TIME SPENT: Discharge took more than 35 minutes. Job ID: [id number]
== END 2019-05-30 12:35 | disposition home or self-care (01) | DRG 300 ==
LOC: 2NO 21:37 → CCU 22:24 → ONC 05-29 13:33
PROVIDERS: ADMIT Internal Medicine; ATTEND Internal Medicine
DX: I77.71 Dissection of carotid artery (principal); I16.1 Hypertensive emergency; M54.2 Cervicalgia; R51 Headache; E78.5 Hyperlipidemia, unspecified; I11.9 Hypertensive heart disease without heart failure; I50.9 Heart failure, unspecified
CPT/HCPCS: 36415; 70498; 76770; 80048; 80061; 82088; 82103; 82533; 83090; 83835; 84585; 85025; 93306; 94760; J1650; J1885; J2270; J7050; Q9966

== ENCOUNTER 2019-08-07 09:50 | Outpatient (CLI) | payer OTHER ==
--- NOTE | 2019-08-07 10:55 | CT ---
EXAM: CTA Angio Neck W WO Alo PROVIDED CLINICAL HISTORY: Carotid dissection COMPARISON: 05/26/2019 FINDINGS: There is a normal three-vessel configuration of the great vessels at the arch. The subclavian, common carotid, vertebral and innominate arteries demonstrate a normal CT angiographi c appearance, as does the right internal carotid artery. There is fusiform aneurysmal dilatation of the left distal cervical internal carotid artery just prox imal to the skull base, with associated dissection flap. This extends over a craniocaudal dimension of about 12 mm. Maximum AP dimension of the aneurysm is 8 mm. The more proximal common nonaneurysmal internal carotid artery measures approximately 4 mm. The left common carotid artery measures approximately 5.7 mm. The cavernous portions of the left internal carotid artery and the cervical int ernal carotid artery proximal to the aneurysm appear normal. There is mixing artifact seen within the left internal jugular vein. The visualized paranasal sinuses and orbital contents appear normal. No evidence for regional lymph node enlargement. Submandibular, parotid and thyroid glands demonstrate a normal CT appearance. Visualized lung apices appear clear. The osseous structures demonstrate no concerning lytic or blastic lesions. 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
[2019-08-07] MEDS ORDERED: Iopamidol 370 76% 100 ML VIAL ONE (15:36)
== END 2019-08-07 09:51 | disposition home or self-care (01) ==
LOC: BICCT 09:50 → CT 09:51
PROVIDERS: ATTEND Thoracic Surgery (Cardiothoracic Vascular Surgery)
DX: I77.71 Dissection of carotid artery (principal)
CPT/HCPCS: 70498